=== PATIENT | female | born 1990 | race African-American/Black ===

== ENCOUNTER 2020-01-22 18:15 | Emergency (ER) | payer MEDICAID ==
[~2020-01-22] VITALS: Ht 177.8 cm; Wt 113.6 kg
[2020-01-22] MEDS ORDERED: ACET-3385 PO (18:25)
[2020-01-22] MEDS ORDERED: PANT-31 PO (18:25)
[2020-01-22] MEDS ORDERED: PRED1 PO (18:25)
[2020-01-22] MEDS ORDERED: CELE200 PO (18:25)
[2020-01-22] MEDS ORDERED: METO25XL PO (18:25)
[2020-01-22] MEDS ORDERED: BENA5TAB26 PO (18:25)
[2020-01-22] MEDS ORDERED: MethylPREDNISolone SOD SUCC 125 MG/2 ML VIAL IVP ONE (19:15)
[2020-01-22 19:44] LABS: BASOPHILS % (AUTO) 0.3 % (0.0-2.0); EOSINOPHILS % (AUTO) 0.8 % (1.0-6.0); HEMATOCRIT 35.4 % (36-46); HEMOGLOBIN 10.9 g/dL (12.0-16.0); LYMPHOCYTES # (AUTO) 1.6 K/uL (1.0-4.8); LYMPHOCYTES % (AUTO) 27.7 % (22.0-44.0); MEAN CORPUSCULAR HEMOGLOBIN 22.1 pg (26.0-34.0); MEAN CORPUSCULAR HGB CONC 30.9 G/dL (31.0-37.0); MEAN CORPUSCULAR VOLUME 72 fL (80-100); MONOCYTES # (AUTO) 0.6 K/uL (0.1-1.0); MONOCYTES % (AUTO) 9.9 % (2.0-9.0); NEUTROPHILS # (AUTO) 3.5 K/uL (1.8-7.7); NEUTROPHILS % (AUTO) 61.3 % (40.0-70.0); PLATELET COUNT (AUTO) 375 K/uL (150-450); RED BLOOD CELL COUNT(AUTO) 4.94 MIL/uL (4.00-5.20); RED CELL DISTRIBUTION WIDTH 16.8 % (11.5-14.5)
[2020-01-22] MEDS ORDERED: KETOROLAC TROMETHAMINE 30 MG/ML VIAL IVP ONE (20:00)
[2020-01-22] MEDS ORDERED: HYDROCODONE/ACETAMINOPHEN 5-325 MG TABLET PO ONE (20:00)
[2020-01-22 20:02] LABS: ANION GAP 8 mmol/L (8-16); CALCIUM, TOTAL 8.7 mg/dL (8.8-10.5); CARBON DIOXIDE 27 mmol/L (22-29); CHLORIDE 105 mmol/L (98-107); CREATININE 0.85 mg/dL (0.60-1.30); GLOMERULAR FILTR. RATE CALC > 60 mL/min (>60); GLUCOSE,RANDOM 96 mg/dL (70-110); POTASSIUM 3.7 mmol/L (3.5-5.1); SODIUM SERUM 140 mmol/L (136-145); UREA NITROGEN, BLOOD 21 mg/dL (7-18)
[2020-01-22 20:05] LABS: ALANINE AMINOTRANSFERASE 23 U/L (12-78); ALBUMIN 3.6 g/dL (3.4-5.0); ALKALINE PHOSPHATASE 78 U/L (46-116); ASPARTATE AMINOTRANSFERASE 20 U/L (15-37); BILIRUBIN,TOTAL 0.3 mg/dL (0.1-1.0); TOTAL PROTEIN, SERUM 7.9 g/dL (6.4-8.2)
[2020-01-22 21:05] LABS: ERYTHROCYTE SEDIMENTATION RATE 29 MM/HR (0-20)
[2020-01-22 21:12] VITALS: BP 130/77
== END 2020-01-22 21:14 | disposition home or self-care (01) ==
LOC: EMS 18:15
DX: M32.9 Systemic lupus erythematosus, unspecified (principal); M25.542 Pain in joints of left hand; M25.541 Pain in joints of right hand; N64.4 Mastodynia; M25.522 Pain in left elbow; K21.9 Gastro-esophageal reflux disease without esophagitis; I10 Essential (primary) hypertension; F12.90 Cannabis use, unspecified, uncomplicated
CPT/HCPCS: 36415; 80053; 85025; 85651; 93005; 96374; 96375; 99284; J1885; J2930